=== PATIENT | male | born 1950 | race Native Hawaiian/Other Pacific Islander ===

== ENCOUNTER → 2020-07-28 | Outpatient (CLI) | payer MEDICARE ==
--- NOTE | 2020-07-29 06:33 | CT ---
EXAMINATION TYPE: CT chest wo/w con DATE OF EXAM: 07/28/2020 COMPARISON: NONE HISTORY: Hemoptysis CT DLP: 1208.4 mGycm. Automated Exposure Control for Dose Reduction was Utilized. TECHNIQUE: CT scan of the thorax is performed following without and with IV Contrast, patient inject ed with 100 mL of Isovue 300. FINDINGS: LUNGS: Mild to moderate bilateral mid to lower lung linear scarring and/or atelectasis. Small slight 5 mm nodular component lateral left mid to lower lung axial image 37. No pleural effusion or pneumoth orax seen bilaterally. No suspicious additional enhancing nodules or masses. Tracheobronchial tree is patent. MEDIASTINUM: There are no greater than 1 cm hilar or mediastinal lymph nodes. No pericardial effusi on is seen. Moderate three-vessel coronary artery calcification. Heart size upper limits of normal. There is moderate to borderline large size hiatal hernia in the retrocardiac region OTHER: Prominent splenule anterior splenic hilum series 7 image 65. Mild multilevel spurring in the s pine. IMPRESSION: Source of hemoptysis is not identified. Mild to borderline moderate mid to lower lung shadi ear chronic fibrotic changes. No suspicious acute pulmonary process. Moderate size fixed hiatal herni a noted.
== END | disposition home or self-care (01) ==
LOC: RADCTMAIN 17:02
PROVIDERS: ATTEND Family Medicine
DX: R04.2 Hemoptysis (principal); K44.9 Diaphragmatic hernia without obstruction or gangrene
CPT/HCPCS: 71270; Q9967

== ENCOUNTER → 2022-07-18 | Outpatient (CLI) | payer MEDICARE ==
--- NOTE | 2022-07-18 08:57 | CT ---
EXAMINATION TYPE: CT chest wo con CT DLP: 645.2 mGycm, Automated exposure control for dose reduction was used. DATE OF EXAM: 07/18/2022 8:10 AM COMPARISON: 07/28/2020 CT chest. CLINICAL INDICATION:Male, 72 years old with history of R04.2 Hemoptysis. TECHNIQUE: Multiple axial images were obtained through the chest. Sagittal and coronal reformats were created for review. Contrast used: none. Oral contrast used: none. FINDINGS: LUNGS/ PLEURA: No focal consolidation, pneumothorax or pleural effusion. Anterior atelectasis/scarrin g within the right middle lobe. Persistent stable left lower lobe suspected intrafissural lymph node series 4 image 39. AIRWAY: Patent and splenule is present. HEART: Heart is mildly enlarged for size. Moderate calcifications of the coronary arteries. MEDIASTINUM: No gross evidence of adenopathy. Moderate hiatal hernia. VASCULATURE: No aortic aneurysm. MUSCULOSKELETAL: Mild disc degeneration changes are present throughout the thoracolumbar spine. SOFT TISSUES/LYMPH NODES: Mild gynecomastia changes. LOWER NECK: No significant findings. UPPER ABDOMEN: No significant findings. IMPRESSION: No evidence for acute process to explain the patient's hemoptysis. Moderate hiatal hernia. Mild cardiomegaly with moderate coronary artery calcifications.
== END | disposition home or self-care (01) ==
LOC: RADCTMAIN 07:41
PROVIDERS: ATTEND Family Medicine
DX: K44.9 Diaphragmatic hernia without obstruction or gangrene (principal); I51.7 Cardiomegaly; I25.10 Atherosclerotic heart disease of native coronary artery without angina pectoris; R04.2 Hemoptysis
CPT/HCPCS: 71250